=== PATIENT | female | born 1985 | race Caucasian/White ===

== ENCOUNTER 2020-01-29 16:17 | Outpatient (REF) | payer MEDICAID, SELFPAY | END 2020-01-29 16:18 | disposition home or self-care (01) | LOC: HO.LAB 16:17 | PROVIDERS: PCP Family Medicine; Visit Provider Internal Medicine | DX: Z20.828 Contact with and (suspected) exposure to other viral communicable diseases (principal) | CPT/HCPCS: C9803; U0003 ==

== ENCOUNTER 2024-12-17 22:08 | Emergency (ER) | payer OTHER, SELFPAY ==
[2024-12-17 22:10] VITALS: BP 134/92; PULSE 69; RESP 20; TEMP 36.3; O2SAT 98; BMI 28.5
--- NOTE | 2024-12-17 23:38 | ECG_ITS ---
Test Reason : WEAKNESS Blood Pressure : */* mmHG Vent. Rate : 47 BPM Atrial Rate : 47 BPM P-R Int : 174 ms QRS Dur : 86 ms QT Int : 422 ms P-R-T Axes : 38 41 30 degrees QTcB Int : 373 ms Sinus bradycardia Low voltage QRS Borderline ECG When compared with ECG of 23-Sep-2003 16:46, QRS voltage has decreased Referred By: Ayo Pineda Electronically Signed By: LUZMARIA RANDHAWA MD
[2024-12-17 23:52] VITALS: BP 127/85; PULSE 57; RESP 21; TEMP 36.3; O2SAT 99
[2024-12-17 23:55] LABS: MANUAL DIFF FLAG NO
[2024-12-17 23:58] LABS: Hematocrit 36.7 % (37.0-47.0); Hemoglobin 12.5 g/dl (12.0-16.0); Imm Gran Abs Auto 0.02 X10*3/uL (0.00-0.03); Imm Gran Pct Auto 0.2 % (0.0-0.4); Lymphocytes Absolute Auto 3.2 X10*3/uL (1.2-4.9); Mean Corpuscular HGB Conc 34.1 g/dl (31.0-35.0); Mean Corpuscular Hemoglobin 30.0 pg (27.0-33.0); Mean Corpuscular Volume 88.2 fL (80.0-98.0); NRBC Abs Auto 0.000 X10*3/uL (0.0-0.012); NRBC Pct Auto 0.0 /100WBC (0.0-0.2); Platelet Count 278 X10*3/uL (160-400); Red Blood Count 4.16 X10*6/uL (4.20-5.50); White Blood Count 8.1 X10*3/uL (4.8-10.8)
[2024-12-17 23:59] LABS: UPreg QC Valid YES
[2024-12-18 00:09] LABS: COVID-19 Test Negative (Negative); IDNOW Serial# 58CA691E
[2024-12-18 00:12] LABS: Acetaminophen LAB < 3 mcg/mL (<30); Alanine Aminotransferase 22 U/L (0-31); Albumin Level 4.4 g/dL (3.5-5.0); Alkaline Phosphatase 51 U/L (39-117); Anion Gap 12 (12-20); Aspartate Amino Transferase 26 U/L (5-31); Blood Urea Nitrogen 12 mg/dL (9-16); Calcium 9.1 mg/dL (8.4-10.2); Carbon Dioxide 25 mmol/L (22-29); Chloride 110 mmol/L (96-108); Creatinine Clr Calc Pharmacy 84.4; Estimated Glomerular Filt Rate > 60; Potassium 3.9 mmol/L (3.3-5.1); Salicylate < 5.0 mg/dL (15-30); Sodium 143 mmol/L (135-145); Total Protein 6.8 g/dL (6.5-8.0)
[2024-12-18 00:15] LABS: Cannabinoid Screen Urine POSITIVE (Not Detect)
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
--- NOTE | 2024-12-18 02:22 | PC.NURSE ---
0042- pts belongings searched by security. Security took cigarettes, lead javascript engineer and marijuana. Pt belongings secured in jhony port on shelf 3, pt has 2 bags, adidas duffle bag and clear hospital bag. Pt calm and cooperative, pt denies any si/hi, or auditory hallucinations. Pt allowed to have work manager, glasses, phone, and headphones bedside per this RNs discretion, explained to pt that this could change, pt understood.
--- OUTSIDE RECORDS SUMMARY | 2024-12-18 03:11 | XMS_ITS | Clinical Summary ---
Author Organization [address] Address [address] [place] [id number] Care Team Providers Care Hospitality Recruiter Name Role Phone Obtain, Unable To Primary Care Provider Unavaila ble Allergies No known active allergies Medications No known medications Active Problems Problem Noted Date Diagnosed Date Manic behavior (HC Code) 05/08/2020 Social History Tobacco Use Types Packs/Day Years Used Date Smoking Tobacco: Passive Smo ke Exposure - Never Smoker Alcohol Use Standard Drinks/Week Comments Not Currently 0 (1 standard drink = 0.6 oz pur e alcohol) Comments Unknown Sex and Gender Information Value Date Recorded Sex Assigned at Not on file Legal Sex Female 10:05 PM EST Gender Identity Not on file Sexual Orientation Not on file Occupation Industry Job Start Date Job End Date Works as a auto body technician Not on file Not on file Not on file Last Filed Vital Signs Vital Sign Reading Time Taken Comments Blood Pressure 131/77 05/08/2020 8:22 PM EST Pulse 99 05/08/2020 8:22 PM EST Temperature 36.3 C (97.4 F) 05/08/2020 8:22 PM EST Respiratory Rate 18 05/08/2020 8:22 PM EST Oxygen Saturation 99% 05/08/2020 8:22 PM EST Inhaled Oxygen Concentration - - Weight 74.8 kg (165 lb) 05/07/2020 10:10 PM EST Height - - Body Mass Index - - Plan of Treatment Health Maintenance Due Date Last Done Comments HIV screening 01/12/1996 Hepatitis C screening 2001 Tetanus adult (Td q 10,TDAP once) 2003 Cervical cancer screening 01/12/2004 Breast cancer screening 2023 Lipid disorder screening 2023 Influenza vaccine 10/09/2024 Covid-19 vaccine series (2023-25 season) 2024 RSV Immunization (1 - 1-dose 75+ series) 2058 Meningococcal B Vaccine Aged Out No l onger eligible based on patient's age to complete this topic Meningococcal Vaccine Aged Out No magdalena petros eligible based on patient's age to complete this topic Pneumococcal Vaccine (2 - 49 years) Aged Out No longer eligible based on patient's age to complete this topic [id number] MEDICAID [id number] MED[place] Care Teams Hospitality Recruiter Relationship Specialty Start Date End Date Obtain, Unable To PCP - General 05/07/20
--- OUTSIDE RECORDS SUMMARY | 2024-12-18 03:11 | XMS_ITS | Clinical Summary ---
Author Organization [employer] Address [address] [place] [address] [place] [address] Care Team Providers Care Sieve Repairer Name Role Phone Unavailable Primary Care Provider Unavailabl e Social History Tobacco Use Types Packs/Day Years Used Date Smoking Tobacco: Never Assessed Comments Unknown Sex and Gender Information Value Date Recorded Sex Assigned at Female 01/08/2022 10:37 AM EDT Legal Sex Female 10:37 AM EDT Gender Identity Female 01/08/2022 10:37 AM EDT Sexual Orientation Choose not to disclose 2021 10:37 AM EDT Plan of Treatment Health Maintenance Due Date Last Done Comments Depression Screening 1983 Disability Screening 1983 Alcohol/Substance Use Screening 1995 Tobacco Screening 1995 Family Planning (PISQ) 1998 HPV Vaccines (1 - 3-dose series) 1998 Hepatitis B Vaccines (1 of 3 - 19+ 3-dose series) 2002 Pap Smear 01/12/2004 Cervical Cancer Screening 2013 HPV/Cotest 2013 Mammogram 2023 DTaP/Tdap/Td Vaccines (3 - T d or Tdap) 07/06/2023 07/05/2013, 03/20/2012 COVID-19 Vaccine (3 - 2024-2 6 season) 2024 08/11/2020, 07/14/2020 Influenza Vaccine (#1) 2024 Zoster Vaccines (1 of 2) 2033 RSV Patients and Patients Aged 60 years or older (1 - 1-dose 75+ series) 2058 HIB Vaccines Aged Out No longer eligi ble based on patient's age to complete this topic Hepatitis A Vaccines Aged Out No long er eligible based on patient's age to complete this topic IPV Vaccines Aged Out No longer eligi ble based on patient's age to complete this topic Meningococcal B Vaccine Aged Out No l onger eligible based on patient's age to complete this topic Meningococcal Vaccine Aged Out No magdalena petros eligible based on patient's age to complete this topic Pneumococcal Vaccine: Pediatrics (0 to 5 Years) and At-Risk Patients (6 to 49) Years Aged Out No longer eligible b ased on patient's age to complete this topic RSV under 20 months Aged Out No longe r eligible based on patient's age to complete this topic Rotavirus Vaccines Aged Out No longer eligible based on patient's age to complete this topic
== END 2024-12-18 04:22 | disposition home or self-care (01) ==
PROVIDERS: Physician Assistant; Emergency Provider Emergency Medicine
DX: F41.9 Anxiety disorder, unspecified (principal); F43.11 Post-traumatic stress disorder, acute; Z86.19 Personal history of other infectious and parasitic diseases; Z79.899 Other long term (current) drug therapy
CPT/HCPCS: 36415; 80053; 80143; 80179; 80307; 81025; 85025; 85652; 86140; 87635; 93005; 99284; S9485

== ENCOUNTER → 2024-12-17 23:38 | Outpatient (BNV) | payer OTHER, SELFPAY | PROVIDERS: Emergency Provider Emergency Medicine; Visit Provider Internal Medicine Cardiovascular Disease | DX: R00.1 Bradycardia, unspecified (principal) | CPT/HCPCS: 93010 ==